=== PATIENT | female | born 1990 | race Caucasian/White ===

== ENCOUNTER → 2017-06-16 | Outpatient (CLI) | payer OTHER ==
[~2017-06-16] MED LIST: BCP'S; BUSP5 PO; Bentyl10 MG PO; DIAZ5 PO; HYDACE5 PO; IBUP800 PO; ONDA4ODT MM; RXONDA4ODT MM
[2017-06-16 18:16] LABS: BASOPHILS ABSOLUTE AUTO 0.04 K/mm3 (0.00-0.23); BASOPHILS PERCENT AUTO 1 % (0-2); EOSINOPHILS ABSOLUTE AUTO 0.06 K/mm3 (0.00-0.68); EOSINOPHILS PERCENT AUTO 1 % (0-6); Hematocrit 40.1 % (33.0-51.0); Hemoglobin 13.7 g/dL (11.5-16.0); IMMATURE GRAN ABSOLUTE AUTO 0.02 K/mm3 (0.00-0.10); IMMATURE GRAN PERCENT AUTO 0 % (0-1); LYMPHOCYTES ABSOLUTE AUTO 1.53 K/mm3 (0.84-5.20); LYMPHOCYTES PERCENT AUTO 20 % (21-46); MONOCYTES ABSOLUTE AUTO 0.64 K/mm3 (0.16-1.47); MONOCYTES PERCENT AUTO 8 % (4-13); Mean Corpuscular HGB 30.1 pg (26.0-34.0); Mean Corpuscular HGB Conc 34.2 g/dL (31.5-36.5); Mean Corpuscular Volume 88 fL (80-100); Mean Platelet Volume 11.6 fL (9.1-12.4); NEUTROPHILS ABSOLUTE AUTO 5.38 K/mm3 (1.96-9.15); NEUTROPHILS PERCENT AUTO 70 % (41-73); Platelet Count 203 K/mm3 (150-400); RDW Coefficient Variation 12.3 % (11.7-14.2); RDW Standard Deviation 39.4 fL (35.1-46.3); Red Blood Cell Count 4.55 M/mm3 (3.80-5.20); White Blood Cell Count 7.67 K/mm3 (4.00-11.30)
[2017-06-16 18:33] LABS: Alanine Aminotransfer (ALT/SGP 19 U/L (12-78); Albumin, Blood 4.2 g/dL (3.4-5.0); Albumin/Globulin Ratio 1.2 (0.8-1.8); Alk Phos 47 U/L (40-126); Anion Gap 9 mmol/L (6-16); Aspartate Aminotrans (AST/SGOT 13 U/L (12-37); Bilirubin, Total 0.5 mg/dL (0.1-1.0); Blood Urea Nitrogen 11 mg/dL (8-24); Bun/Creatinine Ratio 12.8 (12.0-20.0); CO2, Blood 29 mmol/L (21-32); Calcium, Blood 9.3 mg/dL (8.5-10.1); Chloride, Blood 103 mmol/L (98-108); Creatinine, Blood 0.86 mg/dL (0.40-1.00); Globulin, Blood 3.6 g/dL (2.2-4.0); Glomerular Filtration Rate >60 (60-); Glucose, Blood 123 mg/dL (70-99); Potassium, Blood 3.5 mmol/L (3.5-5.5); Sodium, Blood 141 mmol/L (136-145); Thyroid Stimulating Hormone 1.268 uIU/mL (0.360-4.800); Total Protein, Blood 7.8 g/dL (6.4-8.2)
== END | disposition home or self-care (01) ==
LOC: LAB EV 18:10
PROVIDERS: Physician Assistant
DX: R42 Dizziness and giddiness (principal)
CPT/HCPCS: 80053; 84443; 85025

== ENCOUNTER → 2017-06-18 | Outpatient (CLI) | payer OTHER ==
[2017-06-18 09:56] LABS: Source, Urine Clean Catch
[2017-06-18 10:13] LABS: Appearance, Urine Clear (Clear); Color, Urine Yellow (P-Yellow)
[2017-06-18 10:14] LABS: Bilirubin, Urine Neg (Neg); Blood, Urine Neg (Neg); Glucose Qualitative, Urine Neg (Normal); Ketones, Urine Neg (Neg); Leukocyte Esterase, Urine Neg (Neg); Nitrite, Urine Neg (Neg); Protein, Urine Neg (Neg); Urobilinogen, Urine 1+ (Normal)
== END | disposition home or self-care (01) ==
LOC: LAB EV 08:00
PROVIDERS: Physician Assistant
DX: R42 Dizziness and giddiness (principal)
CPT/HCPCS: 81003

== ENCOUNTER → 2017-07-07 | Outpatient (CLI) | payer OTHER ==
[2017-07-07 16:15] LABS: BASOPHILS ABSOLUTE AUTO 0.05 K/mm3 (0.00-0.23); BASOPHILS PERCENT AUTO 1 % (0-2); EOSINOPHILS ABSOLUTE AUTO 0.07 K/mm3 (0.00-0.68); EOSINOPHILS PERCENT AUTO 1 % (0-6); Hematocrit 40.1 % (33.0-51.0); Hemoglobin 13.7 g/dL (11.5-16.0); IMMATURE GRAN ABSOLUTE AUTO 0.02 K/mm3 (0.00-0.10); IMMATURE GRAN PERCENT AUTO 0 % (0-1); LYMPHOCYTES PERCENT AUTO 15 % (21-46); MONOCYTES ABSOLUTE AUTO 0.57 K/mm3 (0.16-1.47); MONOCYTES PERCENT AUTO 9 % (4-13); Mean Corpuscular HGB 30.3 pg (26.0-34.0); Mean Corpuscular HGB Conc 34.2 g/dL (31.5-36.5); Mean Corpuscular Volume 89 fL (80-100); Mean Platelet Volume 11.9 fL (9.1-12.4); NEUTROPHILS ABSOLUTE AUTO 4.58 K/mm3 (1.96-9.15); NEUTROPHILS PERCENT AUTO 74 % (41-73); Platelet Count 197 K/mm3 (150-400); RDW Coefficient Variation 12.7 % (11.7-14.2); RDW Standard Deviation 41.1 fL (35.1-46.3); Red Blood Cell Count 4.52 M/mm3 (3.80-5.20); White Blood Cell Count 6.19 K/mm3 (4.00-11.30)
== END ==
LOC: LAB SHORT 15:59
PROVIDERS: Physician Assistant
DX: R21 Rash and other nonspecific skin eruption (principal)
CPT/HCPCS: 85025; 87070; 87205

== ENCOUNTER 2017-07-22 17:59 | Emergency (ER) | payer OTHER ==
[~2017-07-22] VITALS: Ht 160 cm; Wt 61.2 kg
[~2017-07-22 17:59] MED LIST changes: -Bentyl10 MG PO; -ONDA4ODT MM
[2017-07-22 18:51] LABS: BASOPHILS ABSOLUTE AUTO 0.08 K/mm3 (0.00-0.23); BASOPHILS PERCENT AUTO 1 % (0-2); EOSINOPHILS ABSOLUTE AUTO 0.08 K/mm3 (0.00-0.68); EOSINOPHILS PERCENT AUTO 1 % (0-6); Hematocrit 40.8 % (33.0-51.0); Hemoglobin 13.7 g/dL (11.5-16.0); IMMATURE GRAN ABSOLUTE AUTO 0.02 K/mm3 (0.00-0.10); IMMATURE GRAN PERCENT AUTO 0 % (0-1); LYMPHOCYTES ABSOLUTE AUTO 1.78 K/mm3 (0.84-5.20); LYMPHOCYTES PERCENT AUTO 24 % (21-46); MONOCYTES ABSOLUTE AUTO 0.67 K/mm3 (0.16-1.47); MONOCYTES PERCENT AUTO 9 % (4-13); Mean Corpuscular HGB 29.8 pg (26.0-34.0); Mean Corpuscular HGB Conc 33.6 g/dL (31.5-36.5); Mean Corpuscular Volume 89 fL (80-100); NEUTROPHILS ABSOLUTE AUTO 4.73 K/mm3 (1.96-9.15); NEUTROPHILS PERCENT AUTO 64 % (41-73); Platelet Count 232 K/mm3 (150-400); RDW Coefficient Variation 12.1 % (11.7-14.2); RDW Standard Deviation 39.4 fL (35.1-46.3); White Blood Cell Count 7.36 K/mm3 (4.00-11.30)
[2017-07-22 19:08] LABS: Alanine Aminotransfer (ALT/SGP 18 U/L (12-78); Albumin, Blood 4.3 g/dL (3.4-5.0); Albumin/Globulin Ratio 1.2 (0.8-1.8); Alk Phos 51 U/L (50-136); Anion Gap 7 mmol/L (6-16); Aspartate Aminotrans (AST/SGOT 13 U/L (12-37); Bilirubin, Total 0.6 mg/dL (0.1-1.0); Blood Urea Nitrogen 10 mg/dL (8-24); Bun/Creatinine Ratio 13.1 (12.0-20.0); CO2, Blood 28 mmol/L (21-32); Calcium, Blood 9.2 mg/dL (8.5-10.1); Chloride, Blood 106 mmol/L (98-108); Creatinine, Blood 0.76 mg/dL (0.40-1.00); Globulin, Blood 3.5 g/dL (2.2-4.0); Glomerular Filtration Rate >60 (60-); Glucose, Blood 91 mg/dL (70-99); Potassium, Blood 3.5 mmol/L (3.5-5.5); Sodium, Blood 141 mmol/L (136-145); Total Protein, Blood 7.8 g/dL (6.4-8.2); Troponin I <0.015 ng/mL (0.000-0.040)
[2017-07-22 19:45] LABS: Free Thyroxine 1.22 ng/dL (0.70-1.60)
== END 2017-07-22 22:26 | disposition home or self-care (01) ==
LOC: ER 17:59
PROVIDERS: Emergency Medicine
DX: R42 Dizziness and giddiness (principal); R53.1 Weakness; R51 Headache; Z88.5 Allergy status to narcotic agent; Z79.899 Other long term (current) drug therapy; F41.9 Anxiety disorder, unspecified; F17.200 Nicotine dependence, unspecified, uncomplicated
CPT/HCPCS: 36415; 70450; 71046; 80053; 83880; 84439; 84443; 84484; 85025; 93005; 93010; 99284

== ENCOUNTER 2017-10-03 18:11 | Emergency (ER) | payer OTHER ==
[~2017-10-03] VITALS: Ht 162.6 cm; Wt 58.1 kg
== END 2017-10-03 19:19 | disposition home or self-care (01) ==
LOC: ER 18:11
DX: R59.0 Localized enlarged lymph nodes (principal); Z88.5 Allergy status to narcotic agent; Z87.891 Personal history of nicotine dependence; Z79.1 Long term (current) use of non-steroidal anti-inflammatories (NSAID)
CPT/HCPCS: 87081; 87430; 99283

== ENCOUNTER 2017-10-28 12:55 | Emergency (ER) | payer OTHER ==
[~2017-10-28] VITALS: Ht 162.6 cm; Wt 56.7 kg
[2017-10-28 13:22] LABS: BASOPHILS ABSOLUTE AUTO 0.04 K/mm3 (0.00-0.23); BASOPHILS PERCENT AUTO 1 % (0-2); EOSINOPHILS ABSOLUTE AUTO 0.08 K/mm3 (0.00-0.68); EOSINOPHILS PERCENT AUTO 1 % (0-6); Hematocrit 39.8 % (33.0-51.0); Hemoglobin 13.4 g/dL (11.5-16.0); IMMATURE GRAN ABSOLUTE AUTO 0.02 K/mm3 (0.00-0.10); IMMATURE GRAN PERCENT AUTO 0 % (0-1); LYMPHOCYTES ABSOLUTE AUTO 1.48 K/mm3 (0.84-5.20); LYMPHOCYTES PERCENT AUTO 22 % (21-46); MONOCYTES ABSOLUTE AUTO 0.68 K/mm3 (0.16-1.47); MONOCYTES PERCENT AUTO 10 % (4-13); Mean Corpuscular HGB 29.8 pg (26.0-34.0); Mean Corpuscular HGB Conc 33.7 g/dL (31.5-36.5); Mean Corpuscular Volume 89 fL (80-100); NEUTROPHILS ABSOLUTE AUTO 4.43 K/mm3 (1.96-9.15); NEUTROPHILS PERCENT AUTO 66 % (41-73); Platelet Count 191 K/mm3 (150-400); RDW Coefficient Variation 12.3 % (11.7-14.2); RDW Standard Deviation 39.9 fL (35.1-46.3); Red Blood Cell Count 4.49 M/mm3 (3.80-5.20); White Blood Cell Count 6.73 K/mm3 (4.00-11.30)
[2017-10-28 13:22] LABS: Source, Urine Clean Catch
[2017-10-28 13:26] LABS: Appearance, Urine Clear (Clear); Bilirubin, Urine Neg (Neg); Blood, Urine Neg (Neg); Color, Urine Yellow (P-Yellow); Glucose Qualitative, Urine Neg (Neg); Ketones, Urine Neg (Neg); Leukocyte Esterase, Urine 1+ (Neg); Nitrite, Urine Neg (Neg); Protein, Urine Neg (Neg); Specific Gravity, Urine 1.005 (1.003-1.022); Urobilinogen, Urine NORM (Normal)
[2017-10-28 13:40] LABS: Alanine Aminotransfer (ALT/SGP 18 U/L (12-78); Albumin/Globulin Ratio 1.1 (0.8-1.8); Alk Phos 47 U/L (50-136); Anion Gap 8 mmol/L (6-16); Aspartate Aminotrans (AST/SGOT 12 U/L (12-37); Bilirubin, Total 0.6 mg/dL (0.1-1.0); Blood Urea Nitrogen 9 mg/dL (8-24); Bun/Creatinine Ratio 13.7 (12.0-20.0); CO2, Blood 28 mmol/L (21-32); Chloride, Blood 104 mmol/L (98-108); Creatinine, Blood 0.66 mg/dL (0.40-1.00); Globulin, Blood 3.6 g/dL (2.2-4.0); Glomerular Filtration Rate >60 (60-); Glucose, Blood 96 mg/dL (70-99); Potassium, Blood 3.2 mmol/L (3.5-5.5); Sodium, Blood 140 mmol/L (136-145); Total Protein, Blood 7.6 g/dL (6.4-8.2)
[2017-10-28 13:41] LABS: Bacteria Few /hpf; Red Blood Cells, Urine 0-2 /hpf (0-2); Squamous Epithelial Cells Mod /hpf (Few)
[2017-10-28] MEDS ORDERED: ONDA4ODT MM (15:06)
[2017-10-28] MEDS ORDERED: Bentyl10 MG PO (15:06)
== END 2017-10-28 15:25 | disposition home or self-care (01) ==
LOC: ER 12:55
PROVIDERS: Emergency Medicine
DX: K80.20 Calculus of gallbladder without cholecystitis without obstruction (principal); Z88.5 Allergy status to narcotic agent; Z79.891 Long term (current) use of opiate analgesic
CPT/HCPCS: 36415; 74177; 80053; 81001; 81025; 83690; 85025; 87086; 96360; 99284; J7030; Q9967

== ENCOUNTER → 2018-02-19 | Outpatient (CLI) | payer OTHER, SELFPAY ==
[~2018-02-19] MED LIST changes: +Bentyl10 MG PO; +ONDA4ODT MM
[2018-02-23 15:07] LABS: HPV 16 Negative (Negative); HPV 18 Negative (Negative); HPV OTHER HR TYPES Negative (Negative)
== END | disposition home or self-care (01) ==
LOC: LAB 16:36 → LAB SHORT 16:36
PROVIDERS: Obstetrics & Gynecology
DX: R87.810 Cervical high risk human papillomavirus (HPV) DNA test positive (principal)
CPT/HCPCS: 87624; 88142

== ENCOUNTER → 2018-10-26 | Outpatient (CLI) | payer OTHER ==
[2018-10-26 15:24] LABS: BASOPHILS ABSOLUTE AUTO 0.07 K/mm3 (0.00-0.23); BASOPHILS PERCENT AUTO 1 % (0-2); EOSINOPHILS ABSOLUTE AUTO 0.22 K/mm3 (0.00-0.68); EOSINOPHILS PERCENT AUTO 3 % (0-6); Hematocrit 40.6 % (33.0-51.0); Hemoglobin 13.5 g/dL (11.5-16.0); IMMATURE GRAN ABSOLUTE AUTO 0.03 K/mm3 (0.00-0.10); IMMATURE GRAN PERCENT AUTO 0 % (0-1); LYMPHOCYTES ABSOLUTE AUTO 1.44 K/mm3 (0.84-5.20); LYMPHOCYTES PERCENT AUTO 18 % (21-46); MONOCYTES ABSOLUTE AUTO 0.68 K/mm3 (0.16-1.47); MONOCYTES PERCENT AUTO 9 % (4-13); Mean Corpuscular HGB 30.5 pg (26.0-34.0); Mean Corpuscular HGB Conc 33.3 g/dL (31.5-36.5); Mean Corpuscular Volume 92 fL (80-100); Mean Platelet Volume 12.3 fL (9.1-12.4); NEUTROPHILS ABSOLUTE AUTO 5.49 K/mm3 (1.96-9.15); NEUTROPHILS PERCENT AUTO 69 % (41-73); Platelet Count 220 K/mm3 (150-400); RDW Coefficient Variation 12.5 % (11.7-14.2); RDW Standard Deviation 42.3 fL (35.1-46.3); Red Blood Cell Count 4.43 M/mm3 (3.80-5.20); White Blood Cell Count 7.93 K/mm3 (4.00-11.30)
== END | disposition home or self-care (01) ==
LOC: LAB SHORT 15:16 → LAB 15:16
PROVIDERS: Physician Assistant
DX: R53.83 Other fatigue (principal)
CPT/HCPCS: 84702; 85025

== ENCOUNTER → 2018-11-20 | Outpatient (CLI) | payer OTHER ==
[~2018-11-20] MED LIST changes: +PRENATAL TABLE1 EAC2 PO; +PROBIOTIC250 MG PO; +Vitamin C100 M1 PO; +Vitamin D400 UNI1 PO
[2018-11-20 18:41] LABS: Bilirubin, Urine Neg (Neg); Blood, Urine Neg (Neg); Glucose Qualitative, Urine Neg (Neg); Ketones, Urine Neg (Neg); Leukocyte Esterase, Urine 1+ (Neg); Nitrite, Urine Neg (Neg); Protein, Urine Neg (Neg); Specific Gravity, Urine 1.015 (1.003-1.022); Urobilinogen, Urine NORM (Normal)
[2018-11-20 18:50] LABS: Appearance, Urine Clear (Clear); Color, Urine Yellow (P-Yellow)
[2018-11-20 18:53] LABS: Bacteria Few /hpf; Red Blood Cells, Urine 0-2 /hpf (0-2); Squamous Epithelial Cells Rare /hpf (Few); White Blood Cells, Urine 0-2 /hpf (0-5)
== END ==
LOC: LAB 17:48 → LAB SHORT 17:48
PROVIDERS: Registered Nurse Community Health
DX: Z34.91 Encounter for supervision of normal pregnancy, unspecified, first trimester (principal)
CPT/HCPCS: 81001; 87086

== ENCOUNTER 2019-01-23 15:42 | Emergency (ER) | payer OTHER ==
[~2019-01-23] VITALS: Ht 162.6 cm; Wt 62.1 kg
[~2019-01-23 15:42] MED LIST changes: -PRENATAL TABLE1 EAC2 PO; -PROBIOTIC250 MG PO; -Vitamin C100 M1 PO; -Vitamin D400 UNI1 PO
== END 2019-01-23 17:07 | disposition home or self-care (01) ==
LOC: ER 15:42
DX: O9A.212 Injury, poisoning and certain other consequences of external causes complicating pregnancy, second trimester (principal); S49.92XA Unspecified injury of left shoulder and upper arm, initial encounter; Z3A.16 16 weeks gestation of pregnancy; Z88.5 Allergy status to narcotic agent; Z87.891 Personal history of nicotine dependence; F41.9 Anxiety disorder, unspecified; V89.2XXA Person injured in unspecified motor-vehicle accident, traffic, initial encounter
CPT/HCPCS: 99283

== ENCOUNTER → 2019-01-26 | Outpatient (CLI) | payer OTHER ==
[~2019-01-26] MED LIST changes: +PRENATAL TABLE1 EAC2 PO; +PROBIOTIC250 MG PO; +Vitamin C100 M1 PO; +Vitamin D400 UNI1 PO
[2019-01-29 21:06] LABS: AFP MOM 2.24 (.); AFP VALUE 83.1 ng/mL (.); DIA MOM 1.14 (.); DIA VALUE 206.69 pg/mL (.); DSR (BY AGE) 1 IN 604 (.); DSR (SECOND TRIMESTER) 1 IN 8861 (.); GEST. AGE ON COLLECTION DATE 16.6 WEEKS (.); GESTAT. AGE BASED ON As provided (.); HCG MOM 0.86 (.); HCG VALUE 33878 mIU/mL (.); INSULIN DEP DIABETES No (.); MATERNAL AGE AT EDD 31.1 yr (.); MULTIPLE GESTATION No (.); OSBR RISK 1 IN 482 (.); RACE Caucasian (.); RESULTS Report (.); T18 RISK Not increased (.); TEST RESULTS: *Screen Negative* (.); UE3 MOM 1.11 (.); UE3 VALUE 1.07 ng/mL (.); WEIGHT 138 lbs (.)
== END ==
LOC: LAB SHORT 19:19 → LAB 19:19
PROVIDERS: Registered Nurse Community Health
DX: Z34.92 Encounter for supervision of normal pregnancy, unspecified, second trimester (principal)
CPT/HCPCS: 82105; 82677; 84702; 86336

== ENCOUNTER → 2019-02-10 | Outpatient (CLI) | payer OTHER ==
[2019-02-13 03:07] LABS: CHLAMYDIA TRACHOMATIS, NAA Negative (Negative); NEISSERIA GONORRHOEAE, NAA Negative (Negative)
== END ==
LOC: LAB 12:15 → LAB SHORT 12:15
PROVIDERS: Registered Nurse Community Health
DX: Z11.3 Encounter for screening for infections with a predominantly sexual mode of transmission (principal)
CPT/HCPCS: 87491; 87591

== ENCOUNTER 2019-03-02 22:35 | Observation (INO) | payer OTHER ==
[~2019-03-02] VITALS: Ht 160 cm; Wt 62.2 kg
[~2019-03-02 22:35] MED LIST changes: -PRENATAL TABLE1 EAC2 PO; -PROBIOTIC250 MG PO; -Vitamin C100 M1 PO; -Vitamin D400 UNI1 PO
[2019-03-02 22:54] LABS: BASOPHILS ABSOLUTE AUTO 0.06 K/mm3 (0.00-0.23); BASOPHILS PERCENT AUTO 1 % (0-2); EOSINOPHILS ABSOLUTE AUTO 0.44 K/mm3 (0.00-0.68); EOSINOPHILS PERCENT AUTO 4 % (0-6); Hematocrit 32.3 % (33.0-51.0); Hemoglobin 10.8 g/dL (11.5-16.0); IMMATURE GRAN ABSOLUTE AUTO 0.08 K/mm3 (0.00-0.10); IMMATURE GRAN PERCENT AUTO 1 % (0-1); LYMPHOCYTES ABSOLUTE AUTO 2.11 K/mm3 (0.84-5.20); LYMPHOCYTES PERCENT AUTO 18 % (21-46); MONOCYTES ABSOLUTE AUTO 1.26 K/mm3 (0.16-1.47); MONOCYTES PERCENT AUTO 11 % (4-13); Mean Corpuscular HGB 30.5 pg (26.0-34.0); Mean Corpuscular HGB Conc 33.4 g/dL (31.5-36.5); Mean Corpuscular Volume 91 fL (80-100); Mean Platelet Volume 11.9 fL (9.1-12.4); NEUTROPHILS ABSOLUTE AUTO 7.79 K/mm3 (1.96-9.15); NEUTROPHILS PERCENT AUTO 66 % (41-73); Platelet Count 212 K/mm3 (150-400); RDW Coefficient Variation 12.8 % (11.7-14.2); RDW Standard Deviation 42.3 fL (35.1-46.3); Red Blood Cell Count 3.54 M/mm3 (3.80-5.20); White Blood Cell Count 11.74 K/mm3 (4.00-11.30)
[2019-03-02 23:09] LABS: International Normalized Ratio 0.88; Prothrombin Time Results 9.4 Sec (9.7-11.5)
[2019-03-02 23:15] LABS: Alanine Aminotransfer (ALT/SGP 12 U/L (12-78); Albumin/Globulin Ratio 0.8 (0.8-1.8); Alk Phos 59 U/L (50-136); Anion Gap 6 mmol/L (6-16); Aspartate Aminotrans (AST/SGOT 12 U/L (12-37); Bilirubin, Total 0.2 mg/dL (0.1-1.0); Blood Urea Nitrogen 7 mg/dL (8-24); Bun/Creatinine Ratio 14.2 (12.0-20.0); CO2, Blood 27 mmol/L (21-32); Chloride, Blood 107 mmol/L (98-108); Creatinine, Blood 0.49 mg/dL (0.40-1.00); Globulin, Blood 3.7 g/dL (2.2-4.0); Glomerular Filtration Rate >60 (60-); Glucose, Blood 102 mg/dL (70-99); Potassium, Blood 3.3 mmol/L (3.5-5.5); Sodium, Blood 140 mmol/L (136-145); Total Protein, Blood 6.7 g/dL (6.4-8.2)
[2019-03-03] MEDS ORDERED: PROBIOTIC250 MG PO (00:38)
[2019-03-03] MEDS ORDERED: Vitamin D400 UNI1 PO (00:38)
[2019-03-03] MEDS ORDERED: Vitamin C100 M1 PO (00:38)
--- NOTE | 2019-03-03 04:11 | NUR ---
FHT'S 140. MOVEMENT NOTED. PT DENIES CRAMPING OR CONTRACTIONS. SPOTS OF OLD, DARK BLOOD NOTED ON PAD. PAD CHANGED, WILL MONITOR.
[2019-03-03 05:54] LABS: BASOPHILS ABSOLUTE AUTO 0.06 K/mm3 (0.00-0.23); BASOPHILS PERCENT AUTO 1 % (0-2); EOSINOPHILS ABSOLUTE AUTO 0.34 K/mm3 (0.00-0.68); EOSINOPHILS PERCENT AUTO 4 % (0-6); Hematocrit 27.2 % (33.0-51.0); IMMATURE GRAN ABSOLUTE AUTO 0.08 K/mm3 (0.00-0.10); IMMATURE GRAN PERCENT AUTO 1 % (0-1); LYMPHOCYTES ABSOLUTE AUTO 1.48 K/mm3 (0.84-5.20); LYMPHOCYTES PERCENT AUTO 15 % (21-46); MONOCYTES ABSOLUTE AUTO 1.06 K/mm3 (0.16-1.47); MONOCYTES PERCENT AUTO 11 % (4-13); Mean Corpuscular HGB 29.7 pg (26.0-34.0); Mean Corpuscular HGB Conc 33.1 g/dL (31.5-36.5); Mean Corpuscular Volume 90 fL (80-100); NEUTROPHILS ABSOLUTE AUTO 6.78 K/mm3 (1.96-9.15); NEUTROPHILS PERCENT AUTO 69 % (41-73); Platelet Count 178 K/mm3 (150-400); RDW Coefficient Variation 12.8 % (11.7-14.2); RDW Standard Deviation 41.7 fL (35.1-46.3); Red Blood Cell Count 3.03 M/mm3 (3.80-5.20)
--- NOTE | 2019-03-03 07:20 | NUR ---
ASSUMED CARE. RESTING IN BED. NO COMPLAINTS. NO NEW BLEEDING SEEN WITH LAST VOID. WAITING FOR [facility] FOR PLAN OF CARE. FHT 140S
--- NOTE | 2019-03-03 09:02 | NUR ---
Assumed care from Aurora Field RN.
--- NOTE | 2019-03-03 09:55 | NUR ---
Dr. Tavera in room to discuss plan of care and consultation with in [place]. New orders received.
--- NOTE | 2019-03-03 11:35 | NUR ---
Pt called for IV to be saline locked to shower. Pt reports she had additional gush of blood when up to BR last. Small amount of bright red blood observed on pad. Will notify practioner.
--- NOTE | 2019-03-03 14:30 | NUR ---
Pt had been up to br again and reports another small amount of bleeding. RN observed small amount on pad. Will update CNM when able.
--- NOTE | 2019-03-03 17:45 | NUR ---
Dr. Tavera and Aurora Quiñonez CNM in room discussing plan of care. New orders received.
--- NOTE | 2019-03-03 20:36 | NUR ---
pt desires iv to be out as it is really bugging her and she states if we need to start another we can.
[2019-03-04 05:53] LABS: BASOPHILS ABSOLUTE AUTO 0.06 K/mm3 (0.00-0.23); BASOPHILS PERCENT AUTO 1 % (0-2); EOSINOPHILS ABSOLUTE AUTO 0.55 K/mm3 (0.00-0.68); EOSINOPHILS PERCENT AUTO 6 % (0-6); Hematocrit 29.6 % (33.0-51.0); Hemoglobin 9.8 g/dL (11.5-16.0); IMMATURE GRAN ABSOLUTE AUTO 0.12 K/mm3 (0.00-0.10); IMMATURE GRAN PERCENT AUTO 1 % (0-1); LYMPHOCYTES ABSOLUTE AUTO 1.52 K/mm3 (0.84-5.20); LYMPHOCYTES PERCENT AUTO 16 % (21-46); MONOCYTES ABSOLUTE AUTO 0.92 K/mm3 (0.16-1.47); MONOCYTES PERCENT AUTO 10 % (4-13); Mean Corpuscular HGB 30.2 pg (26.0-34.0); Mean Corpuscular HGB Conc 33.1 g/dL (31.5-36.5); Mean Corpuscular Volume 91 fL (80-100); Mean Platelet Volume 11.7 fL (9.1-12.4); NEUTROPHILS ABSOLUTE AUTO 6.27 K/mm3 (1.96-9.15); NEUTROPHILS PERCENT AUTO 67 % (41-73); Platelet Count 186 K/mm3 (150-400); RDW Coefficient Variation 12.8 % (11.7-14.2); RDW Standard Deviation 42.4 fL (35.1-46.3); Red Blood Cell Count 3.25 M/mm3 (3.80-5.20); White Blood Cell Count 9.44 K/mm3 (4.00-11.30)
--- NOTE | 2019-03-04 08:48 | NUR ---
ULTRASOUND AT BEDSIDE
--- NOTE | 2019-03-04 10:31 | NUR ---
ASSUMED CARE. PT DENIES ANY FURTHER BLEEDING. DISCUSSED PLAN OF CARE.
--- NOTE | 2019-03-04 13:30 | NUR ---
DOPPLER HEART TONES AT 144. SMALL AMOUNTS OF BROWN DISCHARGE ON PAD.
--- NOTE | 2019-03-04 16:00 | NUR ---
PT IN WHEELCHAIR OUTSIDE WITH AND DAUGHTER. SHE STATES SHE IS FEELING STIR CRAZY IN THE ROOM.
--- NOTE | 2019-03-04 17:00 | NUR ---
HEART TONES DOPPLER AT 150. PT DENIES FURTHER BLEEDING.
--- NOTE | 2019-03-04 18:16 | NUR ---
PT OUT IN WHEELCHAIR TO [place] WITH SISTER. PT INSTRUCTED TO NOT GET UP OUT OF THE CHAIR. VERBALIZED UNDERSTANDING.
--- NOTE | 2019-03-04 18:25 | NUR ---
REPORT TO ONCOMING SHIFT
--- NOTE | 2019-03-05 12:43 | NUR ---
ASSUMED PT CARE AT 0715. PT HAS HAD U/S FOR EXTRA LOBE THAT HAS DETACHED AND WAS THE SOURCE OF HER BLEEDING. DURING THE U/S THEY DISCOVERED THERE WAS A VELAMENTOUS CORD INSERTION WELL. PT HAS AN APPT TO GO TO [facility] ON FRIDAY NEXT WEEK. THERE HAS BEEN NO ACTIVE NEW BLEEDING SINCE 03/03/19 @ 0200. PT REPORTS OLD BROWN BLOOD. ROUNDED AT 0830, PLAN TO DC HOME TODAY AFTER 1300 IF NO ACTIVE BLEEDING CONTINUES. PT AWARE OF PLAN. DC INSTRUCTIONS GONE OVER AFTER MD LEFT ROOM. PT UNDERSTANDS PLAN OF CARE.
--- NOTE | 2019-03-05 12:54 | NUR ---
ROMÁN GUILLORY IS WITH 5 YEAR OLD DAUGHTER ON FIELD TRIP. EDMOND Carlisle BE HERE AT 1400 TO HI HOME.
--- NOTE | 2019-03-05 13:20 | NUR ---
DOPPLER FHT AT PT REQUEST FHT 145.
[2019-03-05] MEDS ORDERED: PRENATAL TABLE1 EAC2 PO (13:59)
--- NOTE | 2019-03-05 14:35 | NUR ---
NO NEW BLEEDING. ALL DC INSTRUCTIONS GONE OVER WITH PT. ALL QUESTIONS ANSWERED. AND DAUGHTER HERE TO TAKE PT HOME. DC HOME.
== END 2019-03-05 14:35 | disposition home or self-care (01) ==
LOC: ER 22:35 → BC 22:37 → ER 03-03 00:07 → BC 03-03 00:07 → ER 03-03 00:07 → BC 03-03 04:17
PROVIDERS: Emergency Medicine; Registered Nurse Community Health; ADMIT Obstetrics & Gynecology
DX: O45.92 Premature separation of placenta, unspecified, second trimester (principal); O99.342 Other mental disorders complicating pregnancy, second trimester; F41.9 Anxiety disorder, unspecified; Z79.899 Other long term (current) drug therapy; Z88.5 Allergy status to narcotic agent; Z3A.22 22 weeks gestation of pregnancy
CPT/HCPCS: 36415; 59025; 76815; 76816; 80053; 85025; 85610; 86900; 86901; 96360; 99213; 99285-25; G0378; J7030; J7120

== ENCOUNTER 2019-06-06 12:20 | Inpatient (IN) | payer OTHER ==
[~2019-06-06] VITALS: Ht 162.6 cm; Wt 70.3 kg
[2019-06-06 08:36] LABS: Source, Urine Clean Catch
[2019-06-06 08:42] LABS: Bilirubin, Urine Neg (Neg); Blood, Urine 5+ (Neg); Glucose Qualitative, Urine Neg (Neg); Ketones, Urine Neg (Neg); Leukocyte Esterase, Urine 2+ (Neg); Nitrite, Urine Neg (Neg); Protein, Urine 2+ (Neg); Urobilinogen, Urine NORM (Normal)
[2019-06-06 08:47] LABS: Appearance, Urine Hazy (Clear); Color, Urine Yellow (P-Yellow)
[2019-06-06 08:49] LABS: White Blood Cells, Urine 25-50 /hpf (0-5)
[2019-06-06 08:50] LABS: Bacteria Mod /hpf; Squamous Epithelial Cells Many /hpf (Few)
[2019-06-06 09:29] LABS: BASOPHILS ABSOLUTE AUTO 0.04 K/mm3 (0.00-0.23); BASOPHILS PERCENT AUTO 0 % (0-2); EOSINOPHILS ABSOLUTE AUTO 0.25 K/mm3 (0.00-0.68); EOSINOPHILS PERCENT AUTO 3 % (0-6); Hematocrit 34.1 % (33.0-51.0); Hemoglobin 10.9 g/dL (11.5-16.0); IMMATURE GRAN ABSOLUTE AUTO 0.03 K/mm3 (0.00-0.10); IMMATURE GRAN PERCENT AUTO 0 % (0-1); LYMPHOCYTES ABSOLUTE AUTO 1.27 K/mm3 (0.84-5.20); LYMPHOCYTES PERCENT AUTO 13 % (21-46); MONOCYTES ABSOLUTE AUTO 0.82 K/mm3 (0.16-1.47); MONOCYTES PERCENT AUTO 8 % (4-13); Mean Corpuscular HGB 27.3 pg (26.0-34.0); Mean Corpuscular Volume 86 fL (80-100); Mean Platelet Volume 12.3 fL (9.1-12.4); NEUTROPHILS ABSOLUTE AUTO 7.32 K/mm3 (1.96-9.15); NEUTROPHILS PERCENT AUTO 75 % (41-73); Platelet Count 180 K/mm3 (150-400); RDW Coefficient Variation 13.9 % (11.7-14.2); RDW Standard Deviation 42.8 fL (35.1-46.3); Red Blood Cell Count 3.99 M/mm3 (3.80-5.20); White Blood Cell Count 9.73 K/mm3 (4.00-11.30)
[~2019-06-06 12:20] MED LIST changes: +PRENATAL TABLE1 EAC2 PO; +PROBIOTIC250 MG PO; +Vitamin C100 M1 PO; +Vitamin D400 UNI1 PO
--- NOTE | 2019-06-07 02:00 | NUR ---
MOTHER TO NURSERY TO VISIT NB VIA WHEELCHAIR WITH FOB
[2019-06-07] MEDS ORDERED: FERSU300 PO (03:11)
[2019-06-07] MEDS ORDERED: THERA-D2000 UNIT PO (03:12)
[2019-06-07 05:26] LABS: BASOPHILS ABSOLUTE AUTO 0.02 K/mm3 (0.00-0.23); BASOPHILS PERCENT AUTO 0 % (0-2); EOSINOPHILS PERCENT AUTO 0 % (0-6); Hematocrit 32.3 % (33.0-51.0); Hemoglobin 10.4 g/dL (11.5-16.0); IMMATURE GRAN ABSOLUTE AUTO 0.08 K/mm3 (0.00-0.10); IMMATURE GRAN PERCENT AUTO 1 % (0-1); LYMPHOCYTES ABSOLUTE AUTO 0.85 K/mm3 (0.84-5.20); LYMPHOCYTES PERCENT AUTO 5 % (21-46); MONOCYTES PERCENT AUTO 8 % (4-13); Mean Corpuscular HGB 27.3 pg (26.0-34.0); Mean Corpuscular HGB Conc 32.2 g/dL (31.5-36.5); Mean Corpuscular Volume 85 fL (80-100); Mean Platelet Volume 12.8 fL (9.1-12.4); NEUTROPHILS PERCENT AUTO 86 % (41-73); Platelet Count 177 K/mm3 (150-400); RDW Coefficient Variation 14.1 % (11.7-14.2); RDW Standard Deviation 43.1 fL (35.1-46.3); Red Blood Cell Count 3.81 M/mm3 (3.80-5.20); White Blood Cell Count 15.65 K/mm3 (4.00-11.30)
--- NOTE | 2019-06-07 05:42 | NUR ---
PT TO NURSERY TO FEED NB.
--- NOTE | 2019-06-07 06:36 | NUR ---
PT BACK TO ROOM TO REST.
--- NOTE | 2019-06-07 17:53 | NUR ---
NO COMPLAINTS. TOLERATING AMBULATING TO NURSERY TO FEED AND VISIT. DENIES NEED FOR PAIN MEDS. STABLE.
--- NOTE | 2019-06-08 08:12 | NUR ---
UP TO NURSERY TO FEED BABY. NO COMPLAINTS. FEELING GOOD. WILL ASSESS WHEN BACK IN ROOM.
--- NOTE | 2019-06-08 08:54 | NUR ---
CONSULT. MOM IN SCN TO BF BABY. BABY IS TO START IVF WEANING LATER TODAY. MOM IS EXPERIENCED WITH BF. INSTRUCT/DEMO POSITIONING TO HELP HER LATCH DEEPER, MOM IS ABLE TO SELF EBM EASILY TO HELP ENTICE HER. BABY LATCHED QUICKLY AND ALLOWED LATCH TO BE WIDENED SOME. INSTRUCT IN PUMPING TO HELP BRING SUPPLY IN AND MAKE IT MORE AVAILABLE TO HER HER ENERGY LEVEL IS LOWER DUE TO AGE. MOM IS RECEPTIVE TO TEACHING.
--- NOTE | 2019-06-08 13:13 | NUR ---
DECLINES FOLLOW UP APPOINTMENT. WILL BE HERE FOR A FEW DAYS WITH BABY SO FOLLOW UP WITH FEEDS AND BABY WILL BE DONE.
--- NOTE | 2019-06-08 15:07 | NUR ---
MOTHER TO BOARDER STATUS. DISCHARGE TEACHING DONE AND MOTHER VERBALIZES UNDERSTANDING OF DC INSTRUCTIONS. CARING FOR SELF INDEPENDANTLY. NO QUESTIONS OR CONCERNS. STABLE.
== END 2019-06-08 15:00 | disposition home or self-care (01) | DRG 805 ==
LOC: BC 12:20 → OBS 12:20 → BC 13:50 → OBS 13:50 → BC 23:10
PROVIDERS: Advanced Practice Midwife; Registered Nurse Community Health; ADMIT Obstetrics & Gynecology
PROC: 10E0XZZ Delivery of Products of Conception, External Approach (ICD-10-PCS; principal; 2019-06-06)
PROC: 4A1HXCZ Monitoring of Products of Conception, Cardiac Rate, External Approach (ICD-10-PCS; 2019-06-06)
DX: O43.123 Velamentous insertion of umbilical cord, third trimester (principal); O60.14X0 Preterm labor third trimester with preterm delivery third trimester, not applicable or unspecified; Z37.0 Single live birth; Z3A.35 35 weeks gestation of pregnancy
CPT/HCPCS: 36415; 59025; 76815; 76817; 81001; 85025; 86850; 86900; 86901; 87086; 96372; G0378; J0290; J0702; J1885; J2210; J2405; J7120

== ENCOUNTER → 2021-04-19 | Outpatient (CLI) | payer SELFPAY ==
[~2021-04-19] MED LIST changes: +FERSU300 PO; +THERA-D2000 UNIT PO
== END ==
LOC: LAB SHORT 17:15
DX: O20.0 Threatened abortion (principal)
CPT/HCPCS: 84702

== ENCOUNTER → 2021-04-23 | Outpatient (CLI) | payer SELFPAY ==
[2021-04-23 20:17] LABS: BASOPHILS ABSOLUTE AUTO 0.05 K/mm3 (0.00-0.23); BASOPHILS PERCENT AUTO 1 % (0-2); EOSINOPHILS ABSOLUTE AUTO 0.09 K/mm3 (0.00-0.68); EOSINOPHILS PERCENT AUTO 1 % (0-6); Hematocrit 37.8 % (33.0-51.0); Hemoglobin 12.3 g/dL (11.5-16.0); IMMATURE GRAN ABSOLUTE AUTO 0.02 K/mm3 (0.00-0.10); IMMATURE GRAN PERCENT AUTO 0 % (0-1); LYMPHOCYTES ABSOLUTE AUTO 1.32 K/mm3 (0.84-5.20); LYMPHOCYTES PERCENT AUTO 17 % (21-46); MONOCYTES ABSOLUTE AUTO 0.61 K/mm3 (0.16-1.47); MONOCYTES PERCENT AUTO 8 % (4-13); Mean Corpuscular HGB 29.6 pg (26.0-34.0); Mean Corpuscular HGB Conc 32.5 g/dL (31.5-36.5); Mean Corpuscular Volume 91 fL (80-100); NEUTROPHILS ABSOLUTE AUTO 5.72 K/mm3 (1.96-9.15); NEUTROPHILS PERCENT AUTO 73 % (41-73); Platelet Count 220 K/mm3 (150-400); RDW Coefficient Variation 12.9 % (11.7-14.2); RDW Standard Deviation 42.4 fL (35.1-46.3); Red Blood Cell Count 4.15 M/mm3 (3.80-5.20); White Blood Cell Count 7.81 K/mm3 (4.00-11.30)
[2021-04-23 21:23] LABS: Percent Saturation 37.3 % (15.0-50.0); Thyroid Stimulating Hormone 0.995 uIU/mL (0.360-4.800)
== END | disposition home or self-care (01) ==
LOC: LAB SHORT 18:59
PROVIDERS: Family Medicine
DX: O20.0 Threatened abortion (principal)
CPT/HCPCS: 82728; 83540; 83550; 84443; 84702; 85025

== ENCOUNTER 2021-04-28 05:15 | Observation (INO) | payer OTHER ==
[~2021-04-28] VITALS: Ht 160 cm; Wt 61.2 kg
[2021-04-28 05:35] LABS: Calcium, Ionized (POC) 1.18 mmol/L (1.10-1.46); Chloride (POC) 103 mmol/L (98-108); Creatinine (POC) 0.5 mg/dL (0.6-1.0); Glucose (ISTAT POC) 104 mg/dL (70-99); Hemoglobin (POC) 11.6 g/dL (12.0-16.0); Potassium (POC) 3.3 mmol/L (3.5-5.5); Sodium (POC) 138 mmol/L (135-148); Total CO2 (POC) 22 mmol/L (21-32)
[2021-04-28 06:04] LABS: BASOPHILS ABSOLUTE AUTO 0.06 K/mm3 (0.00-0.23); BASOPHILS PERCENT AUTO 1 % (0-2); EOSINOPHILS ABSOLUTE AUTO 0.13 K/mm3 (0.00-0.68); EOSINOPHILS PERCENT AUTO 2 % (0-6); Hemoglobin 12.4 g/dL (11.5-16.0); IMMATURE GRAN ABSOLUTE AUTO 0.02 K/mm3 (0.00-0.10); IMMATURE GRAN PERCENT AUTO 0 % (0-1); LYMPHOCYTES ABSOLUTE AUTO 1.87 K/mm3 (0.84-5.20); LYMPHOCYTES PERCENT AUTO 25 % (21-46); MONOCYTES ABSOLUTE AUTO 0.69 K/mm3 (0.16-1.47); MONOCYTES PERCENT AUTO 9 % (4-13); Mean Corpuscular HGB 30.3 pg (26.0-34.0); Mean Corpuscular HGB Conc 33.5 g/dL (31.5-36.5); Mean Corpuscular Volume 91 fL (80-100); Mean Platelet Volume 11.4 fL (9.1-12.4); NEUTROPHILS ABSOLUTE AUTO 4.74 K/mm3 (1.96-9.15); NEUTROPHILS PERCENT AUTO 63 % (41-73); Platelet Count 204 K/mm3 (150-400); RDW Coefficient Variation 12.8 % (11.7-14.2); RDW Standard Deviation 41.7 fL (35.1-46.3); Red Blood Cell Count 4.09 M/mm3 (3.80-5.20); White Blood Cell Count 7.51 K/mm3 (4.00-11.30)
[2021-04-28 06:16] LABS: Alanine Aminotransfer (ALT/SGP 16 U/L (12-78); Albumin, Blood 3.7 g/dL (3.4-5.0); Albumin/Globulin Ratio 1.1 (0.8-1.8); Alk Phos 33 U/L (50-136); Anion Gap 5 mmol/L (6-16); Aspartate Aminotrans (AST/SGOT 14 U/L (12-37); Bilirubin, Total 0.8 mg/dL (0.1-1.0); Blood Urea Nitrogen 7 mg/dL (8-24); Bun/Creatinine Ratio 12.7 (12.0-20.0); CO2, Blood 26 mmol/L (21-32); Calcium, Blood 9.5 mg/dL (8.5-10.1); Chloride, Blood 108 mmol/L (98-108); Creatinine, Blood 0.55 mg/dL (0.40-1.00); Globulin, Blood 3.3 g/dL (2.2-4.0); Glomerular Filtration Rate >60 (60-); Glucose, Blood 103 mg/dL (70-99); Potassium, Blood 3.4 mmol/L (3.5-5.5); Sodium, Blood 139 mmol/L (136-145)
[2021-04-28 08:51] LABS: BASOPHILS ABSOLUTE AUTO 0.04 K/mm3 (0.00-0.23); BASOPHILS PERCENT AUTO 0 % (0-2); EOSINOPHILS PERCENT AUTO 0 % (0-6); Hematocrit 30.6 % (33.0-51.0); Hemoglobin 10.5 g/dL (11.5-16.0); IMMATURE GRAN ABSOLUTE AUTO 0.08 K/mm3 (0.00-0.10); IMMATURE GRAN PERCENT AUTO 1 % (0-1); LYMPHOCYTES ABSOLUTE AUTO 0.61 K/mm3 (0.84-5.20); LYMPHOCYTES PERCENT AUTO 4 % (21-46); MONOCYTES ABSOLUTE AUTO 0.54 K/mm3 (0.16-1.47); MONOCYTES PERCENT AUTO 3 % (4-13); Mean Corpuscular HGB 30.3 pg (26.0-34.0); Mean Corpuscular HGB Conc 34.3 g/dL (31.5-36.5); Mean Corpuscular Volume 88 fL (80-100); Mean Platelet Volume 11.6 fL (9.1-12.4); NEUTROPHILS PERCENT AUTO 92 % (41-73); Platelet Count 176 K/mm3 (150-400); RDW Coefficient Variation 13.6 % (11.7-14.2); RDW Standard Deviation 44.2 fL (35.1-46.3); Red Blood Cell Count 3.46 M/mm3 (3.80-5.20); White Blood Cell Count 15.97 K/mm3 (4.00-11.30)
[2021-04-28 09:36] LABS: Influenza A, PCR NEGATIVE (NEGATIVE); Influenza B, PCR NEGATIVE (NEGATIVE); Resp Syncytial Virus, PCR NEGATIVE (NEGATIVE)
[2021-04-28 11:37] LABS: SARS-Cov-2 (COVID-19) PCR, MMC POSITIVE (NEGATIVE)
--- NOTE | 2021-04-28 12:00 | NUR ---
ARRIVAL TO UNIT PT ARRIVED TO UNIT AT APPROX 1145. SLIDE FROM GURNEY TO BED WITH SLIDE SHEET. PT [id number], REPORTS FEELING A LITTLE LIGHTHEADED AND ANXIOUS REGARDING CURRENT SITUATION. SMALL AMOUNT OF SANGUINOUS DRAINAGE IN DEPENDS, CHANGED 20 MINUTES AGO PER PT REPORT. CURRENTLY SITTING IN BED WITH CALL LIGHT IN REACH. LAB REPORTED THAT PT CAME BACK POSITIVE FOR COVID, NOTIFIED NURSING SALES ENGAGEMENT MANAGER. PT REPORTS TESTING POSITIVE ON AND WAS SYMPTOMATIC. INFECTION CONTROL NOTIFED BY SALES ENGAGEMENT MANAGER, DOES NOT NEED ISOLATION AT THIS TIME. PT ASYMPTOMATIC FOR COVID CURRENTLY.
--- NOTE | 2021-04-28 13:06 | NUR ---
BLEEDING: PT PASSING TENNIS BALL SIZED CLOTS X2. PT PALE, DIAPHORETIC, TACHYCARDIC. HYPOTENSIVE. MD NOTIFIED. ORDERS FOR BLOOD TRANSFUSION, REPEAT US AND LABS ORDERED. MEDICATIONS ORDERED. WILL CONT TO MONITOR CLOSELY.
--- NOTE | 2021-04-28 13:50 | NUR ---
VOID: PT UP TO COMMODE, VERY WEAK, TACHYCARDIC AND PALE. PT ATTEMPTED TO VOID WITHOUT SUCCESS. PT ALSO ATTEMPTED VOID ON BEDPAN. BLADDER SCAN >700. WILL STRAIGHT CATH NEEDED.
[2021-04-28 14:00] LABS: BASOPHILS ABSOLUTE AUTO 0.03 K/mm3 (0.00-0.23); BASOPHILS PERCENT AUTO 0 % (0-2); EOSINOPHILS ABSOLUTE AUTO 0.01 K/mm3 (0.00-0.68); EOSINOPHILS PERCENT AUTO 0 % (0-6); Hematocrit 27.7 % (33.0-51.0); Hemoglobin 9.6 g/dL (11.5-16.0); IMMATURE GRAN ABSOLUTE AUTO 0.03 K/mm3 (0.00-0.10); IMMATURE GRAN PERCENT AUTO 0 % (0-1); LYMPHOCYTES ABSOLUTE AUTO 0.81 K/mm3 (0.84-5.20); LYMPHOCYTES PERCENT AUTO 8 % (21-46); MONOCYTES ABSOLUTE AUTO 0.52 K/mm3 (0.16-1.47); MONOCYTES PERCENT AUTO 5 % (4-13); Mean Corpuscular HGB 30.7 pg (26.0-34.0); Mean Corpuscular HGB Conc 34.7 g/dL (31.5-36.5); Mean Corpuscular Volume 89 fL (80-100); Mean Platelet Volume 11.8 fL (9.1-12.4); NEUTROPHILS ABSOLUTE AUTO 8.57 K/mm3 (1.96-9.15); NEUTROPHILS PERCENT AUTO 86 % (41-73); Platelet Count 174 K/mm3 (150-400); RDW Coefficient Variation 13.9 % (11.7-14.2); Red Blood Cell Count 3.13 M/mm3 (3.80-5.20); White Blood Cell Count 9.97 K/mm3 (4.00-11.30)
--- NOTE | 2021-04-28 16:12 | NUR ---
CALLED TO UPDATE ON PT STATUS. WILL AWAIT RETURN PHONE CALL.
[2021-04-28 20:01] LABS: BASOPHILS ABSOLUTE AUTO 0.03 K/mm3 (0.00-0.23); BASOPHILS PERCENT AUTO 0 % (0-2); EOSINOPHILS ABSOLUTE AUTO 0.04 K/mm3 (0.00-0.68); EOSINOPHILS PERCENT AUTO 1 % (0-6); Hematocrit 30.6 % (33.0-51.0); IMMATURE GRAN ABSOLUTE AUTO 0.03 K/mm3 (0.00-0.10); IMMATURE GRAN PERCENT AUTO 0 % (0-1); LYMPHOCYTES ABSOLUTE AUTO 1.52 K/mm3 (0.84-5.20); LYMPHOCYTES PERCENT AUTO 20 % (21-46); MONOCYTES ABSOLUTE AUTO 0.81 K/mm3 (0.16-1.47); MONOCYTES PERCENT AUTO 11 % (4-13); Mean Corpuscular HGB 30.9 pg (26.0-34.0); Mean Corpuscular HGB Conc 35.9 g/dL (31.5-36.5); Mean Corpuscular Volume 86 fL (80-100); Mean Platelet Volume 11.6 fL (9.1-12.4); NEUTROPHILS ABSOLUTE AUTO 5.01 K/mm3 (1.96-9.15); NEUTROPHILS PERCENT AUTO 67 % (41-73); Platelet Count 159 K/mm3 (150-400); RDW Coefficient Variation 13.5 % (11.7-14.2); RDW Standard Deviation 42.3 fL (35.1-46.3); Red Blood Cell Count 3.56 M/mm3 (3.80-5.20); White Blood Cell Count 7.44 K/mm3 (4.00-11.30)
--- NOTE | 2021-04-29 02:09 | NUR ---
NURSE ROUNDING AT 0115. PT AWAKE, REPORTS SOME ABD CRAMPING AND PRESSURE ON BUTTOCK REGION. STARTED AROUND MIDNIGHT. AGREED TO TAKE TORADOL 30MG FOR PAIN. NE PAD HAD SMALL BRIGHT RED VAGINAL BLEEDING. NO CLOTS.PT ALSO REPORTS SOME MILD ITCHING AND REDNESS ON HER FACE (T-ZONE), PT APPEARS FLUSHED BUT DENIES CHEST PAIN AND SOB. SHE REPORTED HAVING REACTION FROM THE ABX. PT STS "I FEEL FINE, I JUST FELT ITCHY AND FLUSHED." NOTIFY THE PT TO CALL FOR ANY NEW SX.
--- NOTE | 2021-04-29 02:10 | NUR ---
NURSE ROUNDING AT 0130 AM. PT REPORT TORADOL HELPED WITH THE PRESSURE ON HER BUTTOCK REGION. ABD CRAMPING IS STILL PRESENT. PT REPORTS PASSING TISSUE AFTER VOIDING. TISSUE WITH SOME MILD BLODD WITH A SIZE OF LEMON. VSS. PT DENIES DIZZINESS, DENIES LIGHTHEADEDNESS. WILL CONTINUE TO MONITOR.
--- NOTE | 2021-04-29 02:23 | NUR ---
PT IN BATHROOM, VOIDED. PT DENIES PASSING ANY CLOTS OR TISSUE. PT ALSO DENIES ANY BLEEDING AT THIS TIME. VSS.
[2021-04-29 05:18] LABS: BASOPHILS ABSOLUTE AUTO 0.05 K/mm3 (0.00-0.23); BASOPHILS PERCENT AUTO 1 % (0-2); EOSINOPHILS ABSOLUTE AUTO 0.06 K/mm3 (0.00-0.68); EOSINOPHILS PERCENT AUTO 1 % (0-6); Hematocrit 27.1 % (33.0-51.0); Hemoglobin 9.6 g/dL (11.5-16.0); IMMATURE GRAN ABSOLUTE AUTO 0.03 K/mm3 (0.00-0.10); IMMATURE GRAN PERCENT AUTO 1 % (0-1); LYMPHOCYTES ABSOLUTE AUTO 1.36 K/mm3 (0.84-5.20); LYMPHOCYTES PERCENT AUTO 21 % (21-46); MONOCYTES ABSOLUTE AUTO 0.58 K/mm3 (0.16-1.47); MONOCYTES PERCENT AUTO 9 % (4-13); Mean Corpuscular HGB 31.1 pg (26.0-34.0); Mean Corpuscular HGB Conc 35.4 g/dL (31.5-36.5); Mean Corpuscular Volume 88 fL (80-100); Mean Platelet Volume 12.1 fL (9.1-12.4); NEUTROPHILS PERCENT AUTO 68 % (41-73); Platelet Count 136 K/mm3 (150-400); RDW Coefficient Variation 13.8 % (11.7-14.2); RDW Standard Deviation 43.5 fL (35.1-46.3); Red Blood Cell Count 3.09 M/mm3 (3.80-5.20); White Blood Cell Count 6.48 K/mm3 (4.00-11.30)
--- NOTE | 2021-04-29 05:29 | NUR ---
ABX ADMINISTERED. PT APPEARS TO HAVE SOME MILD FACIAL REDNESS AND ITCHING. TOLERABLE AT THIS TIME. PT DENIES CHEST PAIN, SOB. ABD CRAMPING HAS IMPROVED. PT FEELS BETTER AT THIS TIME.
--- NOTE | 2021-04-29 05:32 | NUR ---
SHIFT SUMMARY PT AOX4. PT REPORTS ABD CRAMPS AND PRESSURE ON HER BUTTOCK SINCE MIDNIGHT. SHE PASSED SOME TISSUE WITH A SIZE OF LEMON WITH MILD BLEEDING X1. BLEEDING HAS IMPROVED. PERIPAD WITH MILD BRIGHT RED BLEEDING. VSS. PT DENIES NAUSEA AND VOMITING. TOLERATING PO INTAKE. PT HGB WAS 11 LAST NIGHT AND 9.6 THIS MORNING. SHE ASYMPTOMATIC. PT DENIES DIZZINESS AND LIGHTHEADEDNESS. AMBULATING INDEPENDENTLY IN ROOM. ABX ADMINSTERED X2 WITH SOME MILD REDNESS/FLUSHING AND ITCHING ON HER FACE. PT STS IT IS TOLERABLE. DENIES SOB. CALL LIGHT WITHIN REACH. WILL PROVIDE REPORT TO ONCOMING NURSE.
--- NOTE | 2021-04-29 12:24 | NUR ---
DISCHARGE PT LEFT VIA WHEELCHAIR. VSS PT DENIES FURTHER EPISODES OF DIZZINESS OR LIGHTHEADEDNESS. SCANT AMOUNT OF DRAINAGE ON NE PAD DURING THIS SHIFT. PT REPORTS FEELINGS OF WEAKNESS IMPROVED. TOLERATING PO, CRAMPING FEELING IMPROVING. DISCHARGE INSTRUCTIONS GONE OVER WITH PATIENT, STATED UNDERSTANDING. IVS REMOVED PRIOR TO DISCHARGE.
== END 2021-04-29 12:18 | disposition home or self-care (01) ==
LOC: ER 05:15 → SURS 05:16
PROVIDERS: Emergency Medicine; ADMIT Obstetrics & Gynecology
PROC: 10D07Z3 Extraction of Products of Conception, Low Forceps, Via Natural or Artificial Opening (ICD-10-PCS; principal; 2021-04-28)
DX: O02.1 Missed abortion (principal); U07.1 COVID-19; Z87.891 Personal history of nicotine dependence
CPT/HCPCS: 0241U; 36415; 36430; 76801; 76857; 80047; 80053; 85014; 85018; 85025; 86850; 86900; 86901; 86923; 96374; 96375; 99285-25; A9270; J0690; J1885; J2210; J2405; J3010; J7030; J7050; J7120; P9016

== ENCOUNTER → 2021-05-01 | Outpatient (CLI) | payer OTHER ==
[2021-05-01 13:36] LABS: BASOPHILS ABSOLUTE AUTO 0.04 K/mm3 (0.00-0.23); BASOPHILS PERCENT AUTO 1 % (0-2); EOSINOPHILS ABSOLUTE AUTO 0.06 K/mm3 (0.00-0.68); EOSINOPHILS PERCENT AUTO 1 % (0-6); Hematocrit 28.5 % (33.0-51.0); Hemoglobin 9.9 g/dL (11.5-16.0); IMMATURE GRAN ABSOLUTE AUTO 0.01 K/mm3 (0.00-0.10); IMMATURE GRAN PERCENT AUTO 0 % (0-1); LYMPHOCYTES ABSOLUTE AUTO 1.15 K/mm3 (0.84-5.20); LYMPHOCYTES PERCENT AUTO 25 % (21-46); MONOCYTES PERCENT AUTO 11 % (4-13); Mean Corpuscular HGB 31.2 pg (26.0-34.0); Mean Corpuscular HGB Conc 34.7 g/dL (31.5-36.5); Mean Corpuscular Volume 90 fL (80-100); NEUTROPHILS ABSOLUTE AUTO 2.84 K/mm3 (1.96-9.15); NEUTROPHILS PERCENT AUTO 62 % (41-73); Platelet Count 193 K/mm3 (150-400); RDW Coefficient Variation 13.5 % (11.7-14.2); RDW Standard Deviation 44.8 fL (35.1-46.3); Red Blood Cell Count 3.17 M/mm3 (3.80-5.20)
== END ==
LOC: LAB SHORT 11:20
PROVIDERS: Registered Nurse Community Health
DX: O02.1 Missed abortion (principal); Z88.1 Allergy status to other antibiotic agents; Z88.5 Allergy status to narcotic agent; Z88.8 Allergy status to other drugs, medicaments and biological substances
CPT/HCPCS: 84702; 85025

== ENCOUNTER → 2021-12-07 | Outpatient (CLI) | payer OTHER | END | disposition home or self-care (01) | LOC: LAB SHORT 18:24 → LAB 18:24 | DX: J02.9 Acute pharyngitis, unspecified (principal) | CPT/HCPCS: 87081 ==

== ENCOUNTER → 2022-05-14 | Outpatient (CLI) | payer OTHER | END | disposition home or self-care (01) | LOC: LAB SHORT 19:18 → LAB 19:18 | DX: M79.605 Pain in left leg (principal) | CPT/HCPCS: 85379 ==

== ENCOUNTER → 2024-01-28 | Outpatient (CLI) | payer OTHER ==
[2024-02-01 13:06] LABS: VARICELLA-ZOSTER VIRUS BY PCR Not Detected
[2024-02-01 13:17] LABS: HSV 1 SUBTYPE BY PCR Not Detected; HSV 2 SUBTYPE BY PCR Not Detected; HSV SUBTYPE SOURCE RIGHT THIGH
== END ==
LOC: LAB SHORT 17:42 → LAB 17:42
PROVIDERS: Physician Assistant
DX: R23.8 Other skin changes (principal)
CPT/HCPCS: 87529; 87798